=== PATIENT | female | born 1965 | race Asian ===

== ENCOUNTER 2019-12-08 14:45 | Emergency (ER) | payer OTHER ==
[~2019-12-08] VITALS: Ht 154.9 cm; Wt 59.4 kg
[2019-12-08 15:02] LABS: PLATELET COUNT 112 K/uL (152-353)
[2019-12-08 15:09] LABS: POTASSIUM 5.6 mmol/L (3.6-5.2)
[2019-12-08 15:40] VITALS: BP 117/75; TEMP 98.9
[2019-12-09] MEDS ORDERED: HUMALOG KW100 UNIT/M SC (01:23)
[2019-12-09] MEDS ORDERED: DULOXETINE HYDR30 MG PO (01:24)
[2019-12-09] MEDS ORDERED: DOK100 MG PO (01:24)
[2019-12-09] MEDS ORDERED: FLUOXETINE40 MG PO (01:25)
[2019-12-09] MEDS ORDERED: LISI5TAB10 PO (01:26)
[2019-12-09] MEDS ORDERED: LEVE500T5 PO (01:26)
[2019-12-09] MEDS ORDERED: METO25TA2 PO (01:28)
[2019-12-09] MEDS ORDERED: SODIUM BICAR650 MG PO (01:29)
[2019-12-09] MEDS ORDERED: PIOGLITAZONE HY30 MG PO (01:29)
[2019-12-09] MEDS ORDERED: VIMPAT200 M1 PO (01:30)
[2019-12-09] MEDS ORDERED: TOPAMAX25 MG PO (01:30)
[2019-12-09] MEDS ORDERED: LIPITOR40 MG PO (01:31)
[2019-12-09] MEDS ORDERED: LANTUS100 UNIT/M SC (01:32)
[2019-12-09] MEDS ORDERED: NORTRIPTYLIN25 MG PO (01:32)
[2019-12-13] MEDS ORDERED: CHOL100034 PO (12:40)
[2019-12-13] MEDS ORDERED: ACET-206 PO (12:40)
[2019-12-13] MEDS ORDERED: ESCI10TA PO (12:41)
[2019-12-13] MEDS ORDERED: OXCARBAZEPIN300 MG PO (12:42)
[2019-12-13] MEDS ORDERED: OLANZAPINE5 MG PO (12:42)
[2019-12-13] MEDS ORDERED: MAGNSUS68 PO (12:42)
[2019-12-13] MEDS ORDERED: METO-837 PO (12:42)
== END 2019-12-08 15:40 | disposition other institution (70) ==
LOC: ED 14:54
PROVIDERS: Family Medicine
DX: Z00.8 Encounter for other general examination (principal); F91.8 Other conduct disorders; F31.89 Other bipolar disorder; Z11.59 Encounter for screening for other viral diseases
CPT/HCPCS: 80053; 85027; 87635; 93005; 99283; U00003

== ENCOUNTER 2019-12-17 19:28 | Emergency (ER) | payer OTHER ==
[~2019-12-17] VITALS: Ht 165.1 cm; Wt 56.7 kg
[~2019-12-17 19:28] MED LIST: ACET-206 PO; CHOL100034 PO; DOK100 MG PO; DULOXETINE HYDR30 MG PO; ESCI10TA PO; FLUOXETINE40 MG PO; HUMALOG KW100 UNIT/M SC; LANTUS100 UNIT/M SC; LEVE500T5 PO; LIPITOR40 MG PO; LISI5TAB10 PO; MAGNSUS68 PO; METO-837 PO; METO25TA2 PO; NORTRIPTYLIN25 MG PO; OLANZAPINE5 MG PO; OXCARBAZEPIN300 MG PO; PIOGLITAZONE HY30 MG PO; SODIUM BICAR650 MG PO; TOPAMAX25 MG PO; VIMPAT200 M1 PO
[2019-12-17 20:23] LABS: PLATELET COUNT 150 K/uL (152-353)
[2019-12-17 20:28] LABS: PARTIAL THROMBOPLASTIN TIME 22.7 SECONDS (24.5-33.6)
[2019-12-17 20:30] LABS: POTASSIUM 5.2 mmol/L (3.6-5.2); SODIUM 136 mmol/L (136-145)
[2019-12-17 21:36] VITALS: BP 126/75; TEMP 98.9
[2019-12-20] MEDS ORDERED: OXCARBAZEPIN300 MG PO (11:55)
[2019-12-20] MEDS ORDERED: OLAN2.5T2 PO (11:56)
[2019-12-20] MEDS ORDERED: LEVE500T5 PO (11:57)
[2019-12-20] MEDS ORDERED: LEVOFLOXACIN500 MG PO (11:57)
[2019-12-20] MEDS ORDERED: ESCI10TA PO (11:58)
[2019-12-20] MEDS ORDERED: NUEDEXTA 20-10MG CAP PO (11:59)
[2019-12-20] MEDS ORDERED: INSU300I SC (12:00)
== END 2019-12-17 21:37 | disposition other institution (70) ==
LOC: ED 19:28
PROVIDERS: Hospitalist
DX: R56.9 Unspecified convulsions (principal); E11.65 Type 2 diabetes mellitus with hyperglycemia; E11.22 Type 2 diabetes mellitus with diabetic chronic kidney disease; Z79.4 Long term (current) use of insulin
CPT/HCPCS: 36415; 80053; 80156; 80320; 82550; 82553; 83880; 84484; 85027; 85610; 85730; 93005; 96372; 99283; J1815